=== PATIENT | male | born 1975 | race Caucasian/White ===

== ENCOUNTER 2019-02-07 21:44 | Emergency (ER) | payer BC ==
--- NOTE | 2019-02-07 22:44 | ER ---
Nurse's Notes [facility] Name: Jhonatan Martines Age: 43 yrs Sex: Male : 1975 Arrival Date: 02/07/2019 Time: 21:45 Bed 19 Private MD: Cris Sewell H Diagnosis: Rash and other nonspecific skin eruption Presentation: 02/07 21:57 Presenting complaint: Patient states: rash and itching. 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 pt c/o itching all over now. Transition of care: patient was not received from another setting of care. Onset of symptoms is unknown. Risk Assessment: Do you want to hurt yourself or someone else? Patient reports no desire to harm self or others. Care prior to arrival: None. 21:57 Method Of Arrival: Ambulatory ak1 21:57 Acuity: MARGA 4 ak1 22:00 Initial Sepsis Screen: Does the patient meet any 2 criteria? No. Patient's initial ao sepsis screen is negative. Does the patient have a suspected source of infection? No. Patient's initial sepsis screen is negative. Triage Assessment: 21:58 General: Appears in no apparent distress. ak1 02/08 04:04 General: Behavior is calm, cooperative, appropriate for age. ao Historical: - Allergies: 02/07 21:58 Azithromycin; ak1 - Home Meds: 21:58 None [Active]; ak1 - PMHx: 21:58 Hypertension; ak1 - PSHx: 21:58 back sx; ak1 - Immunization history:: Adult Immunizations unknown. - Social history:: Smoking status: Patient/guardian denies using tobacco. - Ebola Screening: : No symptoms or risks identified at this time. Screenin/17 04:03 Abuse screen: Denies threats or abuse. Denies injuries from another. Nutritional ao screening: No deficits noted. Tuberculosis screening: No symptoms or risk factors identified. Fall Risk None identified. Assessment: 02/07 23:00 General: Appears in no apparent distress. comfortable, Behavior is calm, cooperative, ao appropriate for age. Pain: Denies pain. Neuro: Level of Consciousness is awake, alert, obeys commands, Oriented to person, place, time, situation, Appropriate for age Moves all extremities. Full function Speech is normal, Facial symmetry appears normal. Cardiovascular: Capillary refill < 3 seconds Patient's skin is warm and dry. Respiratory: Airway is patent Respiratory effort is even, unlabored, Respiratory pattern is regular, symmetrical, Breath sounds are clear bilaterally. GI: Abdomen is round obese. : No signs and/or symptoms were reported regarding the genitourinary system. EENT: No signs and/or symptoms were reported regarding the EENT system. Derm: Skin is intact, Skin temperature is warm. Musculoskeletal: Circulation, motion, and sensation intact. Range of motion: intact in all extremities. 23:45 Reassessment: DC instructions was given by RYAN Ballesteros. Patient agree with POC and to ao follow up with PCP. Vital Signs: 21:58 BP 163 / 101; Pulse 82; Resp 20; Temp 99.1; Pulse Ox 98% on R/A; Weight 158.76 kg (R); ak1 Height 6 ft. 0 in. (182.88 cm); Pain 0/10; 23:45 BP 143 / 94; Pulse 84; Resp 16; Pulse Ox 98% on R/A; ao 21:58 Body Mass Index 47.47 (158.76 kg, 182.88 cm) ak1 ED Course: 21:45 Patient arrived in ED. am2 21:45 Cris Sewell DO is Private Physician. am2 21:57 Triage completed. ak1 21:58 Arm band placed on Patient placed in an exam room, on a stretcher, Patient notified of ak1 wait time. 22:00 Patient has correct armband on for positive identification. inspector production plastic parts on. Pulse ao ox on. 22:35 Kwabena Menchaca NP is PHCP. pm1 22:35 Lino Boston MD is Attending Physician. pm1 23:02 No provider procedures requiring assistance completed. Patient did not have IV access jb4 during this emergency room visit. Administered Medications: 23:01 Drug: SOLU-Medrol 125 mg Route: IM; Site: left gluteus; jb4 23:01 Follow up: Response: No adverse reaction; Medication administered at discharge. jb4 23:01 Drug: Pepcid 20 mg Route: PO; jb4 23:01 Follow up: Response: No adverse reaction; Medication administered at discharge. jb4 23: Drug: Benadryl 25 mg Route: PO; jb4 23:02 Follow up: Response: No adverse reaction; Medication administered at discharge. jb4 Outcome: 22:43 Discharge ordered by MD. pm1 23:02 Discharged to home ambulatory. jb4 23:02 Condition: stable 23:02 Discharge instructions given to patient, Instructed on discharge instructions, follow up and referral plans. medication usage, Demonstrated understanding of instructions, follow-up care, medications, Prescriptions given X 4. 23:03 Patient left the ED. jb4 Signatures: Amira Abdi RN RN ak1 Gunnar Barker RN RN Kwabena Amin, TRANSPORTATION SALES CONSULTANT TRANSPORTATION SALES CONSULTANT pm1 Garry Pereyra RN RN jb4 Yanely Peralta Marlyn
--- NOTE | 2019-02-07 22:44 | EDPHYS ---
Physician Documentation [facility] Name: Jhonatan Martines Age: 43 yrs Sex: Male : 1975 Arrival Date: 02/07/2019 Time: 21:45 Bed 19 Private MD: Cris Sewell H ED Physician Lino Boston HPI: 02/07 23:00 This 43 yrs old Male presents to ER via Ambulatory with complaints of Rash. pm1 23:00 The patient's rash thought to be caused by an unknown cause. The rash is located on the pm1 body diffusely. The rash can be described as plaque-like, raised. Onset: The symptoms/episode began/occurred 2 day(s) ago. Associated signs and symptoms: Pertinent positives: itching, Pertinent negatives: burning sensation, difficulty breathing, fever, swelling of lips, swelling of throat, swelling of tongue, vomiting, wheezing. Severity of symptoms: in the emergency department the symptoms are worse. The patient has not experienced similar symptoms in the past. The patient has not recently seen a physician. Historical: - Allergies: 21:58 Azithromycin; ak1 - Home Meds: 21:58 None [Active]; ak1 - PMHx: 21:58 Hypertension; ak1 - PSHx: 21:58 back sx; ak1 - Immunization history:: Adult Immunizations unknown. - Social history:: Smoking status: Patient/guardian denies using tobacco. - Ebola Screening: : No symptoms or risks identified at this time. ROS: 23:00 Constitutional: Negative for fever, chills, and weight loss, Eyes: Negative for injury, pm1 pain, redness, and discharge, ENT: Negative for injury, pain, and discharge, Neck: Negative for injury, pain, and swelling, Cardiovascular: Negative for chest pain, palpitations, and edema, Respiratory: Negative for shortness of breath, cough, wheezing, and pleuritic chest pain, Abdomen/GI: Negative for abdominal pain, nausea, vomiting, diarrhea, and constipation, Back: Negative for injury and pain, : Negative for injury, bleeding, discharge, and swelling, MS/Extremity: Negative for injury and deformity. 23:00 Neuro: Negative for headache, weakness, numbness, tingling, and seizure. 23:00 Skin: Positive for rash, diffusely. Exam: 23:00 Constitutional: This is a well developed, well nourished patient who is awake, alert, pm1 and in no acute distress. Head/Face: Normocephalic, atraumatic. Eyes: Pupils equal round and reactive to light, extra-ocular motions intact. Lids and lashes normal. Conjunctiva and sclera are non-icteric and not injected. Cornea within normal limits. Periorbital areas with no swelling, redness, or edema. ENT: Nares patent. No nasal discharge, no septal abnormalities noted. Tympanic membranes are normal and external auditory canals are clear. Oropharynx with no redness, swelling, or masses, exudates, or evidence of obstruction, uvula midline. Mucous membranes moist. Neck: Trachea midline, no thyromegaly or masses palpated, and no cervical lymphadenopathy. Supple, full range of motion without nuchal rigidity, or vertebral point tenderness. No Meningismus. Chest/axilla: Normal chest wall appearance and motion. Nontender with no deformity. No lesions are appreciated. Cardiovascular: Regular rate and rhythm with a normal S1 and S2. No gallops, murmurs, or rubs. Normal PMI, no JVD. No pulse deficits. Respiratory: Lungs have equal breath sounds bilaterally, clear to auscultation and percussion. No rales, rhonchi or wheezes noted. No increased work of breathing, no retractions or nasal flaring. Abdomen/GI: Soft, non-tender, with normal bowel sounds. No distension or tympany. No guarding or rebound. No evidence of tenderness throughout. Back: No spinal tenderness. No costovertebral tenderness. Full range of motion. 23:00 MS/ Extremity: Pulses equal, no cyanosis. Neurovascular intact. Full, normal range of motion. 23:00 Skin: Appearance: normal except for affected area, consistent with contact dermatitis. 23:00 Neuro: Orientation: is normal, Motor: is normal, moves all fours. Vital Signs: 21:58 BP 163 / 101; Pulse 82; Resp 20; Temp 99.1; Pulse Ox 98% on R/A; Weight 158.76 kg (R); ak1 Height 6 ft. 0 in. (182.88 cm); Pain 0/10; 23:45 BP 143 / 94; Pulse 84; Resp 16; Pulse Ox 98% on R/A; ao 21:58 Body Mass Index 47.47 (158.76 kg, 182.88 cm) ak1 MDM: 22:36 Patient medically screened. pm1 22:42 Data reviewed: vital signs. Data interpreted: Pulse oximetry: on room air is 98 %. pm1 Interpretation: normal. Counseling: I had a detailed discussion with the patient and/or guardian regarding: the historical points, exam findings, and any diagnostic results supporting the discharge/admit diagnosis, the need for outpatient follow up, to return to the emergency department if symptoms worsen or persist or if there are any questions or concerns that arise at home. Administered Medications: 23:01 Drug: SOLU-Medrol 125 mg Route: IM; Site: left gluteus; jb4 23:01 Follow up: Response: No adverse reaction; Medication administered at discharge. jb4 23:01 Drug: Pepcid 20 mg Route: PO; jb4 23:01 Follow up: Response: No adverse reaction; Medication administered at discharge. jb4 23:01 Drug: Benadryl 25 mg Route: PO; jb4 23:02 Follow up: Response: No adverse reaction; Medication administered at discharge. jb4 Disposition: 23:13 Co-signature as Attending Physician, Lino Boston MD. lucía Disposition: 02/07/19 22:43 Discharged to Home. Impression: Rash and other nonspecific skin eruption. - Condition is Stable. - Discharge Instructions: Rash. - Prescriptions for Benadryl 25 mg Oral Capsule - take 1 capsule by ORAL route every 6 hours As needed; 30 tablet. Clotrimazole 1 % Topical Cream - Apply to affected area 1 application by TOPICAL route every 12 hours; 30 gram. Pepcid 20 mg Oral Tablet - take 1 tablet by ORAL route every 12 hours for 10 days; 20 tablet. Medrol (Nito) 4 mg Oral Tablets, Dose Pack - take 1 tablet by ORAL route as directed - follow package instructions; 1 packet. - Medication Reconciliation Form, Thank You Letter, Antibiotic Education, Prescription Opioid Use form. - Follow up: Emergency Department; When: As needed; Reason: Worsening of condition. Follow up: Private Physician; When: 2 - 3 days; Reason: Recheck today's complaints, Continuance of care, Re-evaluation by your physician. - Problem is new. - Symptoms have improved. Signatures: Lino Boston MD MD pkAmira Yu, RN RN ak1 Kwabena Menchaca, DIRECTOR OF MEDICARE DIRECTOR OF MEDICARE pm1 Garry Pereyra, RN RN jb4 Corrections: (The following items were deleted from the chart) 23:03 22:43 02/07/2019 22:43 Discharged to Home. Impression: Rash and other nonspecific skin jb4 eruption. Condition is Stable. Forms are Medication Reconciliation Form, Thank You Letter, Antibiotic Education, Prescription Opioid Use. Follow up: Emergency Department; When: As needed; Reason: Worsening of condition. Follow up: Private Physician; When: 2 - 3 days; Reason: Recheck today's complaints, Continuance of care, Re-evaluation by your physician. Problem is new. Symptoms have improved. pm1
[2019-02-07] MEDS ORDERED: METHYLPREDNISOLONE 125 MG INJ ONE (23:05)
[2019-02-07] MEDS ORDERED: FAMOTIDINE 20 MG TAB ONE (23:06)
[2019-02-07] MEDS ORDERED: DIPHENHYDRAMINE 25 MG TAB/CAP ONE (23:06)
[2019-02-07 23:10] VITALS: BP 163/101; TEMP 99.1; O2SAT 98
== END 2019-02-07 23:03 | disposition home or self-care (01) ==
LOC: ER 21:44
DX: R21 Rash and other nonspecific skin eruption (principal); I10 Essential (primary) hypertension; Z88.1 Allergy status to other antibiotic agents
CPT/HCPCS: 96372; 99284; J2930

== ENCOUNTER 2019-07-26 18:52 | Emergency (ER) | payer BC ==
--- NOTE | 2019-07-26 19:51 | ER ---
Nurse's Notes [facility] Name: Jhonatan Martines Age: 43 yrs Sex: Male : 1975 Arrival Date: 07/26/2019 Time: 18:53 Bed 25 Private MD: Diagnosis: Allergic contact dermatitis due to plants, except food Presentation: 07/26 19:34 Presenting complaint: Patient states: Report exposure to poison natalio on Wednesday. Rashes ao bilateral arms and upper trunk. Transition of care: patient was not received from another setting of care. Onset of symptoms was July 25, 2019 at 02:00. Risk Assessment: Do you want to hurt yourself or someone else? Patient reports no desire to harm self or others. Initial Sepsis Screen: Does the patient meet any 2 criteria? No. Patient's initial sepsis screen is negative. Does the patient have a suspected source of infection? No. Patient's initial sepsis screen is negative. Care prior to arrival: None. 19:34 Method Of Arrival: Ambulatory ao 19:34 Acuity: MARGA 4 ao 19:34 Acuity: MARGA 5 ao Historical: - Allergies: 19:40 Azithromycin; ao - Home Meds: 19:40 None [Active]; ao - PMHx: 19:40 Hypertension; ao - PSHx: 19:40 None; back surgery; ao - Immunization history:: Adult Immunizations up to date. - Social history:: Smoking status: Patient/guardian denies using tobacco, Patient uses alcohol, occasionally. Patient/guardian denies using street drugs. - Ebola Screening: : Patient negative for fever greater than or equal to 101.5 degrees Fahrenheit, and additional compatible Ebola Virus Disease symptoms Patient denies exposure to infectious person Patient denies travel to an Ebola-affected area in the 21 days before illness onset. Screenin:36 Abuse screen: Denies threats or abuse. Denies injuries from another. Nutritional ca1 screening: No deficits noted. Tuberculosis screening: No symptoms or risk factors identified. Fall Risk None identified. Assessment: 19:36 General: Appears in no apparent distress. comfortable, Behavior is calm, cooperative, ca1 appropriate for age. Pain: Complains of pain in right arm, left arm, right leg and left leg Pain currently is 4 out of 10 on a pain scale. Quality of pain is described as burning, Pain began 5 days ago. Neuro: Level of Consciousness is awake, alert, obeys commands, Oriented to person, place, time, situation, Appropriate for age. Cardiovascular: Heart tones S1 S2 present Capillary refill < 3 seconds Patient's skin is warm and dry. Pulses are all present. Respiratory: Airway is patent Respiratory effort is even, unlabored, Respiratory pattern is regular, symmetrical, Breath sounds are clear bilaterally. GI: Abdomen is round non-distended, Bowel sounds present X 4 quads. Abd is soft and non tender X 4 quads. : No deficits noted. No signs and/or symptoms were reported regarding the genitourinary system. EENT: No deficits noted. No signs and/or symptoms were reported regarding the EENT system. Derm: Skin is intact, is healthy with good turgor, Skin is pink, warm \T\ dry. Rash noted that is red, raised, urticaria, on chest, right arm, left arm, right leg and left leg. Musculoskeletal: Circulation, motion, and sensation intact. Capillary refill < 3 seconds, Range of motion: intact in all extremities. 20:03 Reassessment: Patient appears in no apparent distress at this time. Patient is alert, ca1 oriented x 3, equal unlabored respirations, skin warm/dry/pink. Vital Signs: 19:38 BP 147 / 98; Pulse 87; Resp 18; Temp 98.9(O); Pulse Ox 96% on R/A; Weight 195.04 kg; ao Height 6 ft. 1 in. (185.42 cm); Pain 4/10; 20:03 BP 143 / 84; Pulse 79; Resp 16 S; Pulse Ox 97% on R/A; ca1 19:38 Body Mass Index 56.73 (195.04 kg, 185.42 cm) ao ED Course: 18:53 Patient arrived in ED. mr 19:29 Jessa Rivers, RN is Primary Nurse. ca1 19:35 Arm band placed on right wrist. ca1 19:36 Patient has correct armband on for positive identification. Bed in low position. Call ca1 light in reach. Side rails up X 1. Pulse ox on. NIBP on. Warm blanket given. 19:36 No provider procedures requiring assistance completed. ca1 19:38 Triage completed. ao 19:40 Lucia Landers FNP-C is PHCP. kb 19:40 Chance Gardner MD is Attending Physician. kb 20:02 Patient did not have IV access during this emergency room visit. ca1 Administered Medications: 19:55 Drug: Pepcid 20 mg Route: PO; ca1 20:04 Follow up: Response: Medication administered at discharge. ca1 19:57 Drug: Bactrim (160 mg-800 mg (DS) 1 tablet Route: PO; ca1 20:04 Follow up: Response: Medication administered at discharge. ca1 20:01 Drug: predniSONE 40 mg Route: PO; ca1 20:04 Follow up: Response: Medication administered at discharge. ca1 Outcome: 19:50 Discharge ordered by . kb 20:05 Discharged to home ambulatory. ca1 20:05 Condition: stable 20:05 Discharge instructions given to patient, Instructed on discharge instructions, follow up and referral plans. medication usage, Demonstrated understanding of instructions, follow-up care, medications, Prescriptions given X 3. 20:05 Patient left the ED. ca1 Signatures: Lucia Landers, DIGNA-C DIGNA-Stacey Rivera Alex RN RN Jessa Boyer RN RN ca1
--- NOTE | 2019-07-26 19:51 | EDPHYS ---
Physician Documentation [facility] Name: Jhonatan Martines Age: 43 yrs Sex: Male : 1975 Arrival Date: 07/26/2019 Time: 18:53 Bed 25 Private MD: ED Physician Chance Gardnre HPI: 07/26 19:47 This 43 yrs old Male presents to ER via Ambulatory with complaints of Arm kb swelling, Rash. 19:47 The patient's rash thought to be caused by Contact allergy. The rash is located on the kb chest and left arm and right arm. The rash can be described as erythematous, macular, papular. Onset: The symptoms/episode began/occurred 5 day(s) ago. Associated signs and symptoms: Pertinent positives: itching. Severity of symptoms: At their worst the symptoms were moderate in the emergency department the symptoms are unchanged. The patient has not experienced similar symptoms in the past. The patient has not recently seen a physician. Pt reports he got into poison amarilys on Wednesday and has a rash that is getting wrose. Historical: - Allergies: 19:40 Azithromycin; ao - Home Meds: 19:40 None [Active]; ao - PMHx: 19:40 Hypertension; ao - PSHx: 19:40 None; back surgery; ao - Immunization history:: Adult Immunizations up to date. - Social history:: Smoking status: Patient/guardian denies using tobacco, Patient uses alcohol, occasionally. Patient/guardian denies using street drugs. - Ebola Screening: : Patient negative for fever greater than or equal to 101.5 degrees Fahrenheit, and additional compatible Ebola Virus Disease symptoms Patient denies exposure to infectious person Patient denies travel to an Ebola-affected area in the 21 days before illness onset. ROS: 19:47 Constitutional: Negative for fever, chills, and weight loss, Cardiovascular: Negative kb for chest pain, palpitations, and edema, Respiratory: Negative for shortness of breath, cough, wheezing, and pleuritic chest pain, Abdomen/GI: Negative for abdominal pain, nausea, vomiting, diarrhea, and constipation, Back: Negative for injury and pain, : Negative for injury, bleeding, discharge, and swelling, MS/Extremity: Negative for injury and deformity, Neuro: Negative for headache, weakness, numbness, tingling, and seizure. 19:47 Skin: Positive for rash. Exam: 19:46 Constitutional: This is a well developed, well nourished patient who is awake, alert, kb and in no acute distress. Head/Face: Normocephalic, atraumatic. ENT: Nares patent. No nasal discharge, no septal abnormalities noted. Tympanic membranes are normal and external auditory canals are clear. Oropharynx with no redness, swelling, or masses, exudates, or evidence of obstruction, uvula midline. Mucous membranes moist. Neck: Trachea midline, no thyromegaly or masses palpated, and no cervical lymphadenopathy. Supple, full range of motion without nuchal rigidity, or vertebral point tenderness. No Meningismus. Chest/axilla: Normal chest wall appearance and motion. Nontender with no deformity. No lesions are appreciated. Cardiovascular: Regular rate and rhythm with a normal S1 and S2. No gallops, murmurs, or rubs. Normal PMI, no JVD. No pulse deficits. Respiratory: Lungs have equal breath sounds bilaterally, clear to auscultation and percussion. No rales, rhonchi or wheezes noted. No increased work of breathing, no retractions or nasal flaring. Abdomen/GI: Soft, non-tender, with normal bowel sounds. No distension or tympany. No guarding or rebound. No evidence of tenderness throughout. MS/ Extremity: Pulses equal, no cyanosis. Neurovascular intact. Full, normal range of motion. Neuro: Awake and alert, GCS 15, oriented to person, place, time, and situation. Cranial nerves II-XII grossly intact. Motor strength 5/5 in all extremities. Sensory grossly intact. Cerebellar exam normal. Normal gait. 19:46 Skin: rash a severe rash is noted, consistent with contact dermatitis, on the chest, right arm and left arm. Vital Signs: 19:38 BP 147 / 98; Pulse 87; Resp 18; Temp 98.9(O); Pulse Ox 96% on R/A; Weight 195.04 kg; ao Height 6 ft. 1 in. (185.42 cm); Pain 4/10; 20:03 BP 143 / 84; Pulse 79; Resp 16 S; Pulse Ox 97% on R/A; ca1 19:38 Body Mass Index 56.73 (195.04 kg, 185.42 cm) ao MDM: 19:40 Patient medically screened. kb 19:46 Data reviewed: vital signs, nurses notes. Data interpreted: Pulse oximetry: on room air kb is 96 %. Interpretation: normal. Counseling: I had a detailed discussion with the patient and/or guardian regarding: the historical points, exam findings, and any diagnostic results supporting the discharge/admit diagnosis, the need for outpatient follow up, a family practitioner, to return to the emergency department if symptoms worsen or persist or if there are any questions or concerns that arise at home. Administered Medications: 19:55 Drug: Pepcid 20 mg Route: PO; ca1 20:04 Follow up: Response: Medication administered at discharge. ca1 19:57 Drug: Bactrim (160 mg-800 mg (DS) 1 tablet Route: PO; ca1 20:04 Follow up: Response: Medication administered at discharge. ca1 20:01 Drug: predniSONE 40 mg Route: PO; ca1 20:04 Follow up: Response: Medication administered at discharge. ca1 Disposition: 07/27 05:10 Co-signature as Attending Physician, Chance Gardner MD Available for consultation at [facility] all times . Disposition: 07/26/19 19:50 Discharged to Home. Impression: Allergic contact dermatitis due to plants, except food. - Condition is Stable. - Discharge Instructions: Poison Amarilys Dermatitis, [id number], Contact Dermatitis, [id number]. - Prescriptions for Pepcid 20 mg Oral Tablet - take 1 tablet by ORAL route every 12 hours for 5 days; 10 tablet. Prednisone 20 mg Oral Tablet - take 1 tablet by ORAL route once daily for 5 days; 5 tablet. Bactrim DS 800- 160 mg Oral Tablet - take 1 tablet by ORAL route every 12 hours for 7 days; 14 tablet. - Medication Reconciliation Form, Thank You Letter, Antibiotic Education, Prescription Opioid Use form. - Follow up: Emergency Department; When: As needed; Reason: Worsening of condition. Follow up: Private Physician; When: 2 - 3 days; Reason: Recheck today's complaints, Continuance of care, Re-evaluation by your physician. Signatures: Lucia Landers FNP-C FNP-Ckb Ortiz, Alex RN Chance Mckinnon MD MD ps1 Jessa Rivers RN RN ca1 Corrections: (The following items were deleted from the chart) 07/26 20:05 19:50 07/26/2019 19:50 Discharged to Home. Impression: Allergic contact dermatitis due ca1 to plants, except food. Condition is Stable. Forms are Medication Reconciliation Form, Thank You Letter, Antibiotic Education, Prescription Opioid Use. Follow up: Emergency Department; When: As needed; Reason: Worsening of condition. Follow up: Private Physician; When: 2 - 3 days; Reason: Recheck today's complaints, Continuance of care, Re-evaluation by your physician. kb
[2019-07-26] MEDS ORDERED: predniSONE 20 MG TAB ONE (19:59)
[2019-07-26] MEDS ORDERED: SMZ./TMP. 800/160 MG TABLET ONE (19:59)
[2019-07-26] MEDS ORDERED: FAMOTIDINE 20 MG TAB ONE (19:59)
[2019-07-28 20:13] VITALS: BP 147/98; TEMP 98.9; O2SAT 96
== END 2019-07-26 20:05 | disposition home or self-care (01) ==
LOC: ER 18:52
DX: L23.7 Allergic contact dermatitis due to plants, except food (principal); I10 Essential (primary) hypertension; Z88.1 Allergy status to other antibiotic agents
CPT/HCPCS: 99283; J7512

== ENCOUNTER 2020-03-30 11:11 | Emergency (ER) | payer BC ==
--- NOTE | 2020-03-30 12:08 | ER ---
Nurse's Notes [facility] Name: Jhonatan Martines Age: 44 yrs Sex: Male : 1975 Arrival Date: 03/30/2020 Time: 11:14 Bed 10 Private MD: Cris Sewell H Diagnosis: Otitis media, unspecified, right ear;Other otitis externa, right ear Presentation: 03/30 11:37 Chief complaint: Patient states: drainage from R ear that began 2 days ago. Coronavirus ss screen: Proceed with normal triage. Patient denies a cough. Patient denies shortness of breath or difficulty breathing. Patient denies measured and/or subjective temperature greater than 100.4F prior to today's visit. Patient denies travel on a cruise ship or to a country the [facility] currently lists as an affected area. Patient denies contact with known and/or suspected case of COVID-19. Ebola Screen: Patient denies exposure to infectious person. Patient denies travel to an Ebola-affected area in the 21 days before illness onset. Initial Sepsis Screen: Does the patient meet any 2 criteria? No. Patient's initial sepsis screen is negative. Does the patient have a suspected source of infection? No. Patient's initial sepsis screen is negative. Risk Assessment: Do you want to hurt yourself or someone else? Patient reports no desire to harm self or others. Onset of symptoms was March 28, 2020. 11:37 Method Of Arrival: Ambulatory ss 11:37 Acuity: MARGA 5 ss Historical: - Allergies: 11:40 Azithromycin; ss - PMHx: 11:40 Hypertension; ss - PSHx: 11:40 None; back surgery; ss - Immunization history:: Adult Immunizations up to date. - Social history:: Smoking status: Patient denies any tobacco usage or history of. Screenin:12 Abuse screen: Denies threats or abuse. Denies injuries from another. Nutritional ss screening: No deficits noted. Tuberculosis screening: Never had TB. Fall Risk None identified. Assessment: 12:12 General: Appears in no apparent distress. comfortable, Behavior is calm, cooperative. ss Pain: Denies pain. Neuro: Level of Consciousness is awake, alert, obeys commands, Oriented to person, place, time, situation. Cardiovascular: Capillary refill < 3 seconds is brisk in bilateral fingers Patient's skin is warm and dry. Respiratory: Airway is patent Respiratory effort is even, unlabored, Respiratory pattern is regular, symmetrical. GI: No signs and/or symptoms were reported involving the gastrointestinal system. EENT: Ear canal w/ drainage noted from right ear. Derm: Skin is intact, is healthy with good turgor, Skin is pink, warm \T\ dry. normal. Musculoskeletal: Circulation, motion, and sensation intact. Range of motion: intact in all extremities, Swelling absent. Vital Signs: 11:37 Pulse 83; Resp 17; Temp 98.0(TE); Pulse Ox 97% ; Weight 163.29 kg; Height 6 ft. 0 in. ss (182.88 cm); Pain 0/10; 11:40 BP 158 / 91; ss 11:37 Body Mass Index 48.82 (163.29 kg, 182.88 cm) ss ED Course: 11:14 Patient arrived in ED. dp 11:15 Cris Sewell DO is Private Physician. dp 11:40 Triage completed. ss 11:40 Arm band placed on right wrist. ss 11:56 Kwabena Menchaca NP is PHCP. pm1 11:56 Pillo Bauer MD is Attending Physician. pm1 12:12 Olivia Paulson RN is Primary Nurse. ss 12:12 Patient has correct armband on for positive identification. Bed in low position. Call ss light in reach. 12:14 No provider procedures requiring assistance completed. Patient did not have IV access ss during this emergency room visit. Administered Medications: 12:35 Drug: Rocephin (cefTRIAXone) 1 grams Route: IM; Site: left gluteus; ss 13:50 Follow up: Response: No adverse reaction ss Outcome: 12:08 Discharge ordered by . pm1 12:50 Discharged to home ambulatory. ss 12:50 Condition: good 12:50 Instructed on discharge instructions, follow up and referral plans. medication usage. 12:50 Discharge instructions given to patient, Demonstrated understanding of instructions, follow-up care, medications, Prescriptions given X 2. 12:51 Patient left the ED. ss Signatures: Olivia Paulson RN RN Kwabena Menchaca NP [employer] pm1 Markus Duran dp
--- NOTE | 2020-03-30 12:08 | EDPHYS ---
Physician Documentation [facility] Name: Jhonatan Martines Age: 44 yrs Sex: Male : 1975 Arrival Date: 03/30/2020 Time: 11:14 Bed 10 Private MD: Cris Sewell H ED Physician Pillo Bauer HPI: 03/30 12:06 This 44 yrs old Male presents to ER via Ambulatory with complaints of pm1 Drainage From Ear, Ear Pain. 12:06 The patient presents with drainage, pain. pm1 12:06 The complaints affect the right ear. Onset: The symptoms/episode began/occurred 2 pm1 day(s) ago. Modifying factors: The symptoms are alleviated by nothing, the symptoms are aggravated by nothing. Associated signs and symptoms: Pertinent negatives: cough, fever, nausea, sore throat, vomiting. Severity of symptoms: in the emergency department the symptoms are unchanged. The patient has not experienced similar symptoms in the past. The patient has not recently seen a physician. Historical: - Allergies: 11:40 Azithromycin; ss - PMHx: 11:40 Hypertension; ss - PSHx: 11:40 None; back surgery; ss - Immunization history:: Adult Immunizations up to date. - Social history:: Smoking status: Patient denies any tobacco usage or history of. ROS: 12:06 Constitutional: Negative for fever, chills, and weight loss, Neck: Negative for injury, pm1 pain, and swelling, Cardiovascular: Negative for chest pain, palpitations, and edema. 12:06 Respiratory: Negative for shortness of breath, cough, wheezing, and pleuritic chest pain, Abdomen/GI: Negative for abdominal pain, nausea, vomiting, diarrhea, and constipation, Back: Negative for injury and pain, MS/Extremity: Negative for injury and deformity, Skin: Negative for injury, rash, and discoloration, Neuro: Negative for headache, weakness, numbness, tingling, and seizure. 12:06 ENT: Positive for drainage from ear(s), ear pain, Negative for sore throat, dental pain, difficulty swallowing, difficulty handling secretions, hoarseness. Exam: 12:06 Constitutional: This is a well developed, well nourished patient who is awake, alert, pm1 and in no acute distress. Head/Face: Normocephalic, atraumatic. Eyes: Pupils equal round and reactive to light, extra-ocular motions intact. Lids and lashes normal. Conjunctiva and sclera are non-icteric and not injected. Cornea within normal limits. Periorbital areas with no swelling, redness, or edema. 12:06 Chest/axilla: Normal chest wall appearance and motion. Nontender with no deformity. No lesions are appreciated. 12:06 Back: No spinal tenderness. No costovertebral tenderness. Full range of motion. 12:06 Skin: Warm, dry with normal turgor. Normal color with no rashes, no lesions, and no evidence of cellulitis. MS/ Extremity: Pulses equal, no cyanosis. Neurovascular intact. Full, normal range of motion. 12:06 ENT: External ear(s): are unremarkable, Ear canal(s): erythema, that is moderate, of the right canal, purulent discharge, that is moderate, in the right canal, TM's: rupture, on the right, with purulent discharge, Examination of the other ear shows no obvious abnormality, normal, Posterior pharynx: is normal, airway is patent, no erythema, no exudate, no peritonsilar mass, no pooling of secretions, no swelling. 12:06 Neuro: Exam negative for acute changes, Orientation: is normal, Mentation: is normal, Motor: is normal, moves all fours, Sensation: is normal, Gait: is steady, at a normal pace, without difficulty. Vital Signs: 11:37 Pulse 83; Resp 17; Temp 98.0(TE); Pulse Ox 97% ; Weight 163.29 kg; Height 6 ft. 0 in. ss (182.88 cm); Pain 0/10; 11:40 BP 158 / 91; ss 11:37 Body Mass Index 48.82 (163.29 kg, 182.88 cm) ss MDM: 12:01 Patient medically screened. pm1 12:06 Data reviewed: vital signs. Data interpreted: Pulse oximetry: on room air is 97 %. pm1 Interpretation: normal. Counseling: I had a detailed discussion with the patient and/or guardian regarding: the historical points, exam findings, and any diagnostic results supporting the discharge/admit diagnosis, the need for outpatient follow up, to return to the emergency department if symptoms worsen or persist or if there are any questions or concerns that arise at home. Administered Medications: 12:35 Drug: Rocephin (cefTRIAXone) 1 grams Route: IM; Site: left gluteus; ss 13:50 Follow up: Response: No adverse reaction ss Disposition: 16:11 Co-signature as Attending Physician, Pillo Bauer MD. rn Disposition: 03/30/20 12:08 Discharged to Home. Impression: Otitis media, unspecified, right ear, Other otitis externa, right ear. - Condition is Stable. - Discharge Instructions: Otitis Media, Adult, Otitis Externa. - Prescriptions for Cortisporin 3.5- 10,000-1 mg/mL-unit/mL-% Otic solution - instill 4 drops by OTIC route every 6 hours for 10 days Dispense suspension, not solution; 1 vial. Augmentin 875- 125 mg Oral Tablet - take 1 tablet by ORAL route every 12 hours for 10 days; 20 tablet. - Medication Reconciliation Form, Thank You Letter, Antibiotic Education, Prescription Opioid Use form. - Follow up: Emergency Department; When: As needed; Reason: Worsening of condition. Follow up: Private Physician; When: 2 - 3 days; Reason: Recheck today's complaints, Continuance of care, Re-evaluation by your physician. - Problem is new. - Symptoms have improved. Signatures: Pillo Bauer MD MD rn Smirch, Shelby, RN RN ss Marinas, Patrick, [employer] pm1 Corrections: (The following items were deleted from the chart) 12:51 12:08 03/30/2020 12:08 Discharged to Home. Impression: Otitis media, unspecified, right ss ear; Other otitis externa, right ear. Condition is Stable. Forms are Medication Reconciliation Form, Thank You Letter, Antibiotic Education, Prescription Opioid Use. Follow up: Emergency Department; When: As needed; Reason: Worsening of condition. Follow up: Private Physician; When: 2 - 3 days; Reason: Recheck today's complaints, Continuance of care, Re-evaluation by your physician. Problem is new. Symptoms have improved. pm1
[2020-03-30] MEDS ORDERED: WATER FOR INJ,STERILE 10 ML ONE (12:23)
[2020-03-30] MEDS ORDERED: CEFTRIAXONE 1000 MG/VIAL ONE (12:23)
[2020-03-30 13:01] VITALS: TEMP 98; O2SAT 97
[2020-03-30 13:02] VITALS: BP 158/91
== END 2020-03-30 12:51 | disposition home or self-care (01) ==
LOC: ER 11:11
DX: H66.91 Otitis media, unspecified, right ear (principal); H60.8X1 Other otitis externa, right ear; I10 Essential (primary) hypertension; Z88.1 Allergy status to other antibiotic agents
CPT/HCPCS: 96372; 99283